=== PATIENT | male | born 1980 | race Two or more races ===

== ENCOUNTER 2017-01-09 13:00 | Emergency (ER) | payer SELFPAY ==
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
[2017-01-09 13:44] LABS: BASOPHIL % 0.4 %; EOSINOPHIL # 0.1 K/uL (0.0-0.5); EOSINOPHIL % 0.5 %; HEMATOCRIT 43.4 % (37.0-53.0); HEMOGLOBIN 14.9 g/dL (12.0-17.0); IMMATURE GRANULOCYTE # 0.1 K/uL (0.0-0.3); IMMATURE GRANULOCYTE % 0.7 %; LYMPHOCYTE # 2.3 K/uL (0.8-4.0); LYMPHOCYTE % 20.9 %; MCH 30.6 pg (27.0-34.0); MCHC 34.3 gm/dL (32.0-36.5); MCV 89.1 fl (83.0-98.0); MONOCYTE # 0.7 K/uL (0.0-1.0); MONOCYTE % 6.4 %; MPV 10.4 fl (9.4-12.4); NEUTROPHIL # (ANC) 7.9 K/uL (1.4-9.0); NEUTROPHIL % 71.1 %; NRBC % 0 /100WBC (0-0.00); PLATELET COUNT 260 K/uL (150-450); RBC 4.87 M/uL (4.00-6.00); RDW-CV 12.5 % (11.9-14.6); WBC 11.1 K/uL (4.0-11.0)
[2017-01-09 14:01] LABS: ALBUMIN 3.9 gm/dL (3.5-5.0); ALK PHOS 69 IU/L (33-138); ALT 23 IU/L (12-78); ANION GAP 12.5 (10.0-19.0); AST 17 IU/L (10-40); BLOOD UREA NITROGEN 16 mg/dL (6-24); CALCIUM 8.7 mg/dL (8.5-10.5); CHLORIDE 108 mMol/L (96-110); CO2 26 mMol/L (22-32); CREATININE 0.9 mg/dL (0.6-1.3); ESTIMATED GFR (MDRD EQUATION) > 60; POTASSIUM 4.5 mMol/L (3.7-5.1); SODIUM 142 mMol/L (135-145); TOTAL BILIRUBIN 0.4 mg/dL (0.0-1.5); TOTAL PROTEIN 8.1 g/dL (6.0-8.4)
== END 2017-01-09 14:20 | disposition disaster alternative care site (69) ==
LOC: GMED 13:00
PROVIDERS: Nurse Practitioner Family
DX: R55 Syncope and collapse (principal)